=== PATIENT | female | born 1995 | race African-American/Black ===

== ENCOUNTER 2016-06-22 14:39 | Emergency (ER) | payer OTHER ==
[2016-06-22 14:45] VITALS: BP 143/73
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
== END 2016-06-22 16:29 | disposition home or self-care (01) ==
LOC: ED 14:39
DX: H11.31 Conjunctival hemorrhage, right eye (principal); Y04.0XXA Assault by unarmed brawl or fight, initial encounter; Y92.9 Unspecified place or not applicable
CPT/HCPCS: 70450; 70486; 99281